=== PATIENT | male | born 1970 | race Asian ===

== ENCOUNTER 2023-08-29 10:42 | Emergency (ER) | payer OTHER ==
[~2023-08-29] VITALS: Ht 170.2 cm; Wt 76.2 kg
[2023-08-29 10:59] VITALS: BP 119/77; PULSE 67; RESP 16; TEMP 98.1; O2SAT 99
[2023-08-29] MEDS ORDERED: IBUP-2213 PO (12:31)
[2023-08-29] MEDS ORDERED: AMOX1TAB8 PO (12:31)
[2023-08-29] MEDS ORDERED: BACI-418 TP (12:31)
[2023-08-29] MEDS: BACITRACIN OINT 500 UNITS/GM PKT TP ONE (12:49)
[2023-08-29] MEDS: IBUPROFEN 600 MG TAB PO ONE (12:49)
[2023-08-29 13:05] VITALS: BP 112/68; PULSE 82; RESP 18; TEMP 97.7; O2SAT 98
== END 2023-08-29 13:15 | disposition home or self-care (01) ==
LOC: MED 10:42
DX: S71.152A Open bite, left thigh, initial encounter (principal); W54.0XXA Bitten by dog, initial encounter; Y93.89 Activity, other specified; Y92.89 Other specified places as the place of occurrence of the external cause; Y99.8 Other external cause status
CPT/HCPCS: 90471; 90715; 99283